=== PATIENT | male | born 1950 | race Caucasian/White ===

== ENCOUNTER 2018-08-05 08:50 | Day surgery (SDC) | payer OTHER, BC ==
[2018-07-29 15:56] VITALS: BMI 36.0
[2018-08-05] MEDS ORDERED: PROPOFOL 20 ML ONE ×3 (09:22→10:44)
[2018-08-05 11:13] VITALS: TEMP 98.5
[2018-08-05 11:31] VITALS: BP 112/71; PULSE 77
--- NOTE | 2018-08-07 09:57 | PATH ---
Surgical Pathology Report Patient Name: VINCE PEREZ [facility]. Rec. #: [id number] /Age/Gender: 1950 (Age: 68) / M Account: [id number] Location: [facility] Taken: 08/05/2018 Received: 08/05/2018 Reported: 08/07/2018 Physicians: Carlos Ronodn M.D. Specimen(s) Received BX [facility] Clinical History History of polyps, postoperative findings: polyp Final Diagnosis [facility] POLYP, BIOPSY: COLONIC MUCOSA WITH MILD ACUTE INFLAMMATION IN THE LAMINA PROPRIA, ACUTE CRYPTITIS, WITH PRESERVED CRYPT ARCHITECTURE. NEGATIVE FOR CRYPT ABSCESS OR GRANULOMATOUS INFLAMMATION. NO HISTOLOGIC EVIDENCE OF LYMPHOCYTIC COLITIS. Electronically Signed John Paul Roth M.D. Gross Description Received in formalin, labeled "cecum" is a joiner, irregular portion of soft tissue measuring 0.3 cm. in greatest dimension. The specimen is submitted in toto in one cassette. STAR/08/05/2018 joe/08/05/2018
== END 2018-08-05 11:35 | disposition home or self-care (01) ==
LOC: FASU-ENDO 08:50
PROVIDERS: ATTEND Internal Medicine Gastroenterology
PROC: 0DBH8ZX Excision of Cecum, Via Natural or Artificial Opening Endoscopic, Diagnostic (ICD-10-PCS; principal; 2018-08-05 10:38)
DX: Z86.010 Personal history of colon polyps (principal); D12.0 Benign neoplasm of cecum; K57.30 Diverticulosis of large intestine without perforation or abscess without bleeding; K63.89 Other specified diseases of intestine
CPT/HCPCS: 82962; 88305-TC

== ENCOUNTER 2024-06-04 13:12 | Day surgery (SDC) | payer OTHER, BC ==
[2024-05-29 10:00] VITALS: BMI 30.2
[~2024-06-04 13:12] MED LIST: ACETAMINOPHEN 325 MG TABLET (FP) PO PRN; ACETAMINOPHEN INJECTION 100 ML IVPB ONE; BUPIVACAINE HCL/PF 0.5% (5 MG/ML) 30 ML VIAL IJ ONE; BUPIVACAINE LIPOSOME/PF (EXPAREL) 266 MG/20 ML VIAL ONE; MAG HYDROX/AL HYDROX/SIMETH 30 ML UNIT-DOSE CUP PO PRN; MAGNESIUM HYDROX 2400MG/30ML ORAL SUSPENSION 30 ML CUP PO PRN; MIDAZOLAM HCL 2 MG/2 ML SINGLE DOSE VIAL ONE; ONDANSETRON 4 MG/2 ML VIAL IVPUSH PRN; PHENYLEPHRINE HCL 10 MG/1 ML SINGLE DOSE VIAL ONE; PROPOFOL 20 ML ONE; ceFAZolin SODIUM 1 GM VIAL ONE; ePHEDrine SULFATE 50 MG/1 ML AMPULE ONE; oxyCODONE HCL 5 MG TABLET PO PRN
[2024-06-04] MEDS: CEFAZOLIN 2 GM in DEXTROSE 5%-WATER - 100 ML IVPB ONE (15:53)
[2024-06-04] MEDS: SODIUM CHLORIDE 1,000 ML IV SCH ×2 (15:55→15:56)
[2024-06-04] MEDS: LACTATED RINGERS SOLUTION 1,000 ML IV SCH (15:56)
[2024-06-04] MEDS ORDERED: INSULIN ASPART SLIDING SCALE (NOVOLOG) 1 VIAL SQ SCH (16:30)
[2024-06-04] MEDS: INSULIN ASPART SLIDING SCALE (NOVOLOG) 1 VIAL SQ SCH (16:50)
[2024-06-04] MEDS: ACETAMINOPHEN 1000 MG/100 ML BAG IVPB SCH (17:59)
[2024-06-04] MEDS: CEFAZOLIN SODIUM 2 GM in DEXTROSE 5%-WATER 100 ML IVPB SCH (18:00)
[2024-06-04] MEDS ORDERED: ACETAMINOPHEN 1000 MG/100 ML BAG IVPB SCH (18:00)
[2024-06-04] MEDS ORDERED: CEFAZOLIN SODIUM 2 GM in DEXTROSE 5%-WATER 100 ML IVPB SCH (18:00)
[2024-06-04] MEDS: TRANEXAMIC ACID - 1,000 MG in SODIUM CHLORIDE 50 ML IVPB SCH (21:25)
[2024-06-04] MEDS: ROSUVASTATIN CA 20 MG TABLET PO SCH (21:28)
[2024-06-04] MEDS: SACUBITRIL/VALSARTAN 97 MG-103 MG TABLET PO SCH (21:28)
[2024-06-04] MEDS: ASPIRIN 81 MG CHEWABLE TABLETS PO SCH (21:29)
[2024-06-04] MEDS: FAMOTIDINE 20 MG TABLET PO SCH (21:29)
[2024-06-04] MEDS: GABAPENTIN 300 MG CAPSULE PO SCH (21:29)
[2024-06-04] MEDS: DEXAMETHASONE 4 MG TABLET (FP) PO SCH (21:29)
[2024-06-04] MEDS: oxyCODONE HCL 5 MG TABLET PO PRN (21:29)
[2024-06-04] MEDS: SENNOSIDES/DOCUSATE COMBO (SENNA PLUS) TABLET (UD) PO SCH (21:31)
[2024-06-04] MEDS ORDERED: GABAPENTIN 300 MG CAPSULE PO SCH (22:00)
[2024-06-04] MEDS ORDERED: DEXAMETHASONE 4 MG TABLET (FP) PO SCH (22:00)
[2024-06-04] MEDS ORDERED: ASPIRIN 81 MG CHEWABLE TABLETS PO SCH (22:00)
[2024-06-04] MEDS ORDERED: TRANEXAMIC ACID 1000 MG/10 ML VIAL IVPUSH SCH ×2 (22:00)
[2024-06-04] MEDS ORDERED: FAMOTIDINE 20 MG TABLET PO SCH (22:00)
[2024-06-04] MEDS ORDERED: SACUBITRIL/VALSARTAN 97 MG-103 MG TABLET PO SCH (22:00)
[2024-06-04] MEDS ORDERED: SENNOSIDES/DOCUSATE COMBO (SENNA PLUS) TABLET (UD) PO SCH (22:00)
[2024-06-04] MEDS ORDERED: ROSUVASTATIN CA 40 MG TABLET PO SCH (22:00)
[2024-06-05 08:00] LABS: CALCIUM 9.6 mg/dl (8.5-10.1); POTASSIUM 4.5 mmol/L (3.5-5.1)
[2024-06-05 08:31] VITALS: RESP 18; TEMP 98.6
[2024-06-05] MEDS: SPIRONOLACTONE 25 MG TABLET PO SCH (09:13)
[2024-06-05] MEDS: amLODIPine BESYLATE 10 MG TABLET (FP) PO SCH (09:13)
[2024-06-05] MEDS: ACETAMINOPHEN 500 MG TABLET (FP) PO SCH (09:14)
[2024-06-05] MEDS ORDERED: ACETAMINOPHEN 500 MG TABLET (FP) PO SCH (10:00)
[2024-06-05] MEDS ORDERED: amLODIPine BESYLATE 10 MG TABLET (FP) PO SCH (10:00)
[2024-06-05] MEDS ORDERED: SPIRONOLACTONE 25 MG TABLET PO SCH (10:00)
[2024-06-05 14:23] VITALS: BP 113/64; PULSE 76
== END 2024-06-05 16:04 | disposition home or self-care (01) ==
LOC: FASUSAT 13:12 → FM/S 14:40 → FASUSAT 06-05 16:04
PROVIDERS: ATTEND Orthopaedic Surgery
PROC: 0SRC0J9 Replacement of Right Knee Joint with Synthetic Substitute, Cemented, Open Approach (ICD-10-PCS; principal; 2024-06-04 10:41)
DX: M17.11 Unilateral primary osteoarthritis, right knee (principal)
CPT/HCPCS: 27447; C1776; 36415; 73560-TC-RT-FY; 80048; 82962; 94760; 97010-GP; 97116-GP; 97162-GP; J0131